=== PATIENT | female | born 1970 | race Caucasian/White ===

== ENCOUNTER 2017-07-24 22:48 | Inpatient (IN) | payer MEDICAID ==
[~2017-07-24] VITALS: Ht 170.2 cm; Wt 114.3 kg
[~2017-07-24 22:48] MED LIST: ACET1TAB93 PO; TRAZ-289 PO
[2017-07-24 22:56] VITALS: BP 141/75
--- NOTE | 2017-07-24 23:05 | NUR ---
PT TAKEN TO BED 12
--- NOTE | 2017-07-24 23:10 | NUR ---
47YO F PATIENT PRESENTS TO ED WITH RIGHT LOWER ABD PAIN X 3 HRS. HX.HYDRONEPHROSIS, S/P NEPHROSTOMY DISLODGED IN 05/2017, HX. DVT ON BLOOD THINNER, HTN . DENIES N/V/D; SKIN BILAT LEG PITTING EDEMA; AAOX4 WITH EVEN AND STEADY GAIT; LUNGS CLEAR BL; HR EVEN AND REGULAR; PT DENIES ANY FEVER, CP, SOB, OR COUGH AT THIS TIME; PATIENT STATES PAIN OF 9/10 AT THIS TIME; VSS; PATIENT POSITIONED FOR COMFORT; HOB ELEVATED; BEDRAILS UP X2; BED DOWN. ER MD MADE AWARE OF PT STATUS.
[2017-07-24] MEDS ORDERED: NACL 0.9% 500 ML IV ONE (23:41)
[2017-07-24] MEDS ORDERED: KETOROLAC 30 MG/ML VIAL IVP ONE (23:45)
[2017-07-25] VITALS (7 sets, daily range): BP systolic 97–119; BP diastolic 40–74
[2017-07-25 00:10] LABS: HEMATOCRIT 44.1 % (36-48); HEMOGLOBIN 14.7 g/dL (12.0-16.0); MEAN CORPUSCULAR HEMOGLOBIN 32 pg (27-31); MEAN CORPUSCULAR HGB CONC 33 g/dL (33-37); MEAN CORPUSCULAR VOLUME 94.9 fL (80-94); PLATELET COUNT (AUTO) 242 K/uL (140-450); RED BLOOD CELL COUNT(AUTO) 4.64 MIL/uL (4.20-5.40); RED CELL DISTRIBUTION WIDTH 13.1 % (11.6-13.7)
[2017-07-25 00:11] LABS: APPEARANCE,URINE CLOUDY (CLEAR); BILIRUBIN,URINE 1+ (NEGATIVE); BLOOD, URINE 2+ (NEGATIVE); COLOR,URINE YELLOW (YELLOW); LEUKOCYTE ESTERASE ,URINE 1+ (NEGATIVE); NITRITE, URINE NEGATIVE (NEGATIVE); PH,URINE 5.5 (5.0-9.0); UGLUCOSE NEGATIVE (NEGATIVE)
--- NOTE | 2017-07-25 00:14 | NUR ---
PT TAKEN TO CT
[2017-07-25 00:23] LABS: LYMPHOCYTES % (MANUAL) 5 % (20-46); WHITE BLOOD COUNT (AUTO) 17.1 K/uL (4.8-10.8)
[2017-07-25 00:24] LABS: EOSINOPHILS % (MANUAL) 3 % (0-4); MONOCYTES % (MANUAL) 3 % (5-12)
--- NOTE | 2017-07-25 00:27 | NUR ---
PT RETURN FROM CT
[2017-07-25 00:29] LABS: PROTHROMBIN TIME 10.9 secs (10.8-13.4)
[2017-07-25 00:38] LABS: RBC,URINE 3-10 (FEW) /HPF (0-5)
[2017-07-25 00:39] LABS: URINE AMORPHOUS URATE 4+ /HPF (None Seen)
[2017-07-25 00:40] LABS: CARBON DIOXIDE 24.7 mmol/L (21-32); POTASSIUM 3.7 mmol/L (3.5-5.1)
[2017-07-25 00:52] LABS: ALBUMIN 3.5 g/dL (3.4-5.0); TOTAL BILIRUBIN 0.6 mg/dL (0.0-1.0)
[2017-07-25] MEDS ORDERED: fentaNYL 0.05 MG/ML VIAL IVP ONE (01:10)
[2017-07-25] MEDS ORDERED: LEVOFLOXACIN 500 MG/D5W PREMIX 100 ML IV ONE (01:10)
[2017-07-25] MEDS ORDERED: HYDROcodone/APAP 7.5/325 MG 1 TAB PO PRN (01:20)
[2017-07-25] MEDS ORDERED: ONDANSETRON 4 MG/2 ML VIAL IVP PRN (01:20)
[2017-07-25] MEDS ORDERED: NACL 0.9% 1,000 ML IV ONE (01:20)
[2017-07-25] MEDS ORDERED: NACL 0.9% 3,500 ML IV ONE (01:55)
[2017-07-25 01:57] LABS: CHOL/HDL RATIO 3.6 (1-4.5); FREE T4 (FREE THYROXINE) 0.98 ng/dL (0.76-1.46); MAGNESIUM 1.5 mg/dL (1.8-2.4); PHOSPHORUS 3.2 mg/dL (2.5-4.9); THYROID STIMULATING HORMONE 1.95 uIU/mL (0.34-3.74)
--- NOTE | 2017-07-25 02:11 | NUR ---
ADMITTED A 47F FROM ER. CAME BY RAFA DUE TO RT ABDOMINAL PAIN THAT RADIATES TO THE RT UPPER LEG WITH DX; PYELONEPHRITIS, RENAL STONE. PT USED TO HAVE RT NEPHROSTOMY TUBE BUT FELL OUT MAY 2017. SHE STILL HAS X2 HOLES ON THE RT LOWER BACK WHICH IS ALREADY HEALED. ON TELE MONITOR-ST. AMBULATORY .SKIN INTACT. IVF INFUSING WELL ON THE LT HAND #20,CLEAR AND PATENT. PLAN OF CARE DISCUSSED AND VERBALIZED UNDERSTANDING. ORIENTED TO HOSPITAL ROUTINES. BD ON LOWEST POSITION. CALL LIGHT PLACED WITHIN EASY REACH. PT SAID SHE HAD HX:MRSA WOUND AND BLOOD. TO BE TRANSFERRED TO AN ISOLATION ROOM.WILL CONTINUE TO MONITOR.
--- NOTE | 2017-07-25 02:12 | NUR ---
Patient will be admitted to care of DR WEBER. Admited to TELE. Will go to room 124A. Belongings list completed. Report to LYDIA DOMÍNGUEZ.
[2017-07-25] MEDS: NACL 0.9% 1,000 ML IV SCH ×5 (03:05→22:48)
--- NOTE | 2017-07-25 03:15 | NUR ---
TRANSFERRED TO ISOLATION ROOM 116 DUE TO HX: MRSA BLOOD AND WOUND .
[2017-07-25 04:17] LABS: BARBITURATE, URINE NEG. ng/ml (NEG <=200); BENZODIAZEPINE, URINE NEG. ng/mL (NEG <=200); CANNABINOID, URINE NEG. ng/mL (NEG <=50); COCAINE, URINE NEG. ng/mL (NEG <=300); OPIATE, URINE NEG. ng/mL (NEG <=2000); PHENCYCLIDINE SCREEN,URINE NEG. ng/mL (NEG <=25)
[2017-07-25] MEDS ORDERED: MORPHINE SULFATE 4 MG/ML SYR ONE ×2 (04:29→13:40)
[2017-07-25] MEDS: MORPHINE SULFATE 4 MG/ML SYR IVP PRN ×2 (04:32→23:28)
[2017-07-25] MEDS ORDERED: KETOROLAC 30 MG/ML VIAL IVP PRN (04:35)
--- NOTE | 2017-07-25 05:02 | NUR ---
MADE ROUNDS . PA ASLEEP. NO S/S OF ANY DISCOMFORT NOR PAIN NOTED.
--- NOTE | 2017-07-25 05:40 | NUR ---
MAGNESIUM LEVEL 1.5 MADE AWARE.
[2017-07-25] MEDS ORDERED: MAG SULF 2000 MG/WATER PREMIX 50 ML IV SCH (06:00)
--- NOTE | 2017-07-25 07:10 | NUR ---
ENDORSED PT IN STABLE CONDITION TO AM NURSE.
--- NOTE | 2017-07-25 07:10 | NUR ---
ASSUMED CONTINUITY OF CARE. NO SIGNS AND SYMPTOMS OF ACUTE DISTRESS NOTICED. INITIAL ASSESSMENT DONE. KEEP COMFORTABLE ON BED. EXPLAINED DIAGNOSIS, PLAN OF CARE, PAIN MANAGEMENT TEACHING, CONTACT ISOLATION PRECAUTION EDUCATION, USE OF CALL LIGHT/BED/TV/BATHROOM. VERBALIZED UNDERSTANDING. CALL LIGHT WITHIN REACH.
--- NOTE | 2017-07-25 07:46 | NUR ---
DR. BARRON WENT INSIDE PT. ROOM AND SPOKE TO PT. AT BEDSIDE.
--- NOTE | 2017-07-25 08:00 | NUR ---
Patient's Plan of Care was discussed and reviewed with FLOW TRADER: KULWANT SHETH LVN
[2017-07-25] MEDS: DICLOFENAC 75 MG TABEC PO SCH ×2 (08:54→21:02)
[2017-07-25] MEDS: DOCUSATE SODIUM 100 MG GELCAP PO SCH ×2 (08:54→21:00)
[2017-07-25] MEDS: APIXABAN 2.5 MG TAB PO SCH ×2 (09:04→21:06)
--- NOTE | 2017-07-25 09:07 | NUR ---
PATIENT HAS BEEN SCREENED AND CATEGORIZED HIGH NUTRITION RISK. PATIENT WILL BE SEEN WITHIN 1-2 DAYS OF ADMISSION. 07/25/17 - 07/26/[address]
[2017-07-25] MEDS ORDERED: SEVOFLURANE 250 ML BTL INH ONE (13:15)
[2017-07-25] MEDS ORDERED: PROPOFOL 200 MG/20 ML VIAL IV ONE (13:15)
--- NOTE | 2017-07-25 13:25 | NUR ---
WENT TO O.R. VIA RAFA WITH O.R. NURSE. IN STABLE CONDITION.
[2017-07-25] MEDS ORDERED: fentaNYL 0.05 MG/ML VIAL ONE (13:39)
[2017-07-25] MEDS ORDERED: MIDAZOLAM 2 MG/2 ML VIAL ONE (13:39)
--- NOTE | 2017-07-25 13:48 | NUR ---
CM NOTE INITIAL REVIEW FAXED TO [facility] [phone] PH# [phone] AND TO [facility] [phone] NGOC PH# [phone]
[2017-07-25] MEDS ORDERED: METOCLOPRAMIDE 10 MG/2 ML INJ VIAL IVP PRN (14:10)
[2017-07-25] MEDS ORDERED: MORPHINE SULFATE 4 MG/ML SYR IVP PRN ×3 (14:10)
[2017-07-25] MEDS ORDERED: MORPHINE SULFATE 2 MG/ML SYR IVP PRN (14:10)
[2017-07-25] MEDS ORDERED: MIDAZOLAM 2 MG/2 ML VIAL IV ONE (14:10)
--- NOTE | 2017-07-25 14:53 | NUR ---
07/25/17 RD INITIAL ASSESSMENT COMPLETED PLEASE REFER TO NUTRITION ASSESSMENT UNDER CARE ACTIVITY FOR ESTIMATED NUTRITIONAL NEEDS. 1. CONTINUE NPO STATUS TOLERATED 2. WHEN/IF PT IS MEDICALLY STABLE TO BEGIN NUTRITION, CONSIDER ADVANCE DIET TOLERATED TO [address] TO FOLLOW-UP 2-3 DAYS, HIGH RISK ZAYNAB SALCEDO RD
--- NOTE | 2017-07-25 15:00 | NUR ---
BACK FROM OR VIA GURNEY. IN STABLE CONDITION. KEEP COMFORTABLE ON BED.
--- NOTE | 2017-07-25 17:30 | NUR ---
PT. IV ACCESS ON LEFT HAND GOT INFILTRATED. TRIED IV INSERTION WITH ASSISTANCE FROM CHARGE NURSE JAELYN COLMENARES. IV INSERTION WAS UNSUCCESSFUL. PT. REFUSED ANY ATTEMPT OF IV INSERTION NOW.
--- NOTE | 2017-07-25 19:20 | NUR ---
REPORT GIVEN TO JENS COLMENARES. IN STABLE CONDITION. IV ACCESS ON LEFT HAND INFILTRATED AND PT. WANTED OTHER RN TO START IV. ENDORSED JENS COLMENARES. ABOUT PT. IV INFILTRATION AND TO START NEW IV ACCESS.
--- NOTE | 2017-07-25 19:52 | NUR ---
RECEIVED FROM AM RN IN BED. AMBULATING WELL AND ABLE TO VERBALIZE NEEDS WELL. DAUGHTER AT BEDSIDE. SEEN PT. AMBULATING BY HERSELF FROM RESTROOM INSIDE ROOM. INDEPENDENT. TELEMETRY MONITORING. CARE PLANS FOR THE NIGHT DISCUSSED WITH HER. CALL LIGHT WITH IN REACH.
[2017-07-25] MEDS: FAMOTIDINE 20 MG TAB PO SCH (21:00)
[2017-07-25] MEDS: BACLOFEN 10 MG TAB PO SCH (21:00)
[2017-07-25] MEDS: traZODone 50 MG TAB PO SCH (21:00)
--- NOTE | 2017-07-25 23:00 | NUR ---
DAUGHTER LEFT AND PT. STILL AWAKE WATCHING TV. NO COMPLAINTS OF PAIN AT THIS TIME. TELEMETRY MONITORING. ENCOURAGED TO CALL FOR A [place] HELP SHE MAY NEED OR IF IN PAIN.
[2017-07-26] MEDS: NACL 0.9% 1,000 ML IV SCH ×3 (02:56→18:50)
[2017-07-26 04:00] VITALS: BP 112/68
--- NOTE | 2017-07-26 04:00 | NUR ---
CHECKED ON PT. SLEEPING.
--- NOTE | 2017-07-26 06:46 | NUR ---
SLEPT WELL THIS SHIFT. INDEPENDENT AND GOES BRP BY HERSELF. TELEMETRY MONITORING. MEDICATED WITH PAIN RELIEVER X 1 ONLY THIS SHIFT.
--- NOTE | 2017-07-26 07:05 | NUR ---
ASSUMED CONTINUITY OF CARE. NO SIGNS AND SYMPTOMS OF ACUTE DISTRESS NOTED. INITIAL ASSESSMENT DONE. PT. VERBALLY ABUSIVE. KEEP COMFORTABLE ON BED. EXPLAINED DIAGNOSIS, PLAN OF CARE, PAIN MANAGEMENT TEACHING, CONTACT ISOLATION PRECAUTION, USE OF CALL LIGHT/BED/TV/BATHROOM. VERBALIZED UNDERSTANDING. CALL LIGHT WITHIN REACH.
[2017-07-26 08:00] VITALS: BP 143/95
--- NOTE | 2017-07-26 08:00 | NUR ---
Patient's Plan of Care was discussed and reviewed with [employer]GR[employer] M[employer] OPERATOR: KULWANT SHETH LVN
--- NOTE | 2017-07-26 08:15 | NUR ---
PT. DAUGHTER -SUSAN CAME AND BROUGHT 2 1 LITER PACK OF JUICE. EXPLAINED TO PT. AND PT. DAUGHTER -SUSAN THAT TOO MUCH JUICE WAS NOT GOOD FOR PT.. ASKED PT. AND PT. DAUGHTER JUST TO CALL FOR ASSISTANCE IF NEEDS SOME JUICE OR WATER. PT. NON-COMPLIANT AND VERBALLY ABUSIVE AND STATES "I CAN DRINK WHATEVER I WANT AND HOW MUCH I WANT." IN AN ANGRY TONE OF VOICE. INFORMED CHARGE NURSE SANDIE COLMENARES.
[2017-07-26] MEDS: DOCUSATE SODIUM 100 MG GELCAP PO SCH ×2 (09:08→20:35)
[2017-07-26] MEDS: DICLOFENAC 75 MG TABEC PO SCH ×2 (09:09→20:37)
[2017-07-26] MEDS: APIXABAN 2.5 MG TAB PO SCH ×2 (09:10→20:39)
--- NOTE | 2017-07-26 10:26 | NUR ---
CM NOTE CONCURRENT REVIEW FAXED TO [facility] [phone] PH# [phone] AND TO [facility] [phone] NGOC PH# [phone]
--- NOTE | 2017-07-26 10:50 | NUR ---
DR. COOLEY WENT INSIDE PT. ROOM AND TRIED TO SPOKE TO PT.. BUT SOON DR. COOLEY ATARTED TO TALK, PT. ALREADY VERBALLY ABUSED DR. COOLEY. TRIED TO CALM DOWN PT. BUT PT. NON-COMPLIANT. INFORMED CHARGE NURSE SANDIE COLMENARES.
--- NOTE | 2017-07-26 11:35 | NUR ---
DR. FERGUSON WENT INSIDE PT. ROOM AGAIN AND SPOKE TO PT. AND PT. DAUGHTER- SUSAN ABOUT 2 LITERS OF JUICE THAT PT. DAUGHTER BROUGHT. PT. STILL SO DISRESPECTFUL TO DR. COOLEY. PT. DAUGHTER VERBALIZED UNDERSTANDING AND TOOK AWAY 2 LITERS OF JUICE.
[2017-07-26 12:00] VITALS: BP 156/86
[2017-07-26] MEDS ORDERED: MORPHINE SULFATE 4 MG/ML SYR IVP SCH (12:00)
--- NOTE | 2017-07-26 12:43 | NUR ---
TEMP 102.4. NO ACUTE DISTRESS NOTICED. NON-COMPLIANT. REFUSED COOLING MEASURE APPLICATION. WILL MEDICATE PER MD ORDER. INFORMED DR. BARRON ABOUT PT. TEMP 102.4, WHO WAS AT THE [facility] NURSE STATION AT THIS TIME. ALSO INFORMED DR. COOLEY ABOUT PT. FEVER 102.4.
[2017-07-26] MEDS: ACETAMINOPHEN 325 MG TAB PO PRN ×2 (12:45→22:16)
--- NOTE | 2017-07-26 14:15 | NUR ---
TEMP 98.7 TEMPORAL THERMOMETER. NO C/O PAIN. KEEP COMFORTABLE ON BED. CONTINUE TO MONITOR.
--- NOTE | 2017-07-26 14:18 | NUR ---
INFORMED DR. COOLEY ABOUT PT. LATEST TEMP OF 98.7.
[2017-07-26] MEDS ORDERED: LEVOFLOXACIN 750 MG/D5W PREMIX 150 ML IV SCH (15:00)
[2017-07-26 15:12] LABS: BASOPHILS # (AUTO) 0.1 K/uL (0.00-0.22); BASOPHILS % (AUTO) 0.4 % (0.0-2.0); EOSINOPHILS # (AUTO) 0.2 K/uL (0-0.4); EOSINOPHILS % (AUTO) 0.9 % (0.0-4.0); HEMATOCRIT 38.8 % (36-48); HEMOGLOBIN 12.8 g/dL (12.0-16.0); MEAN CORPUSCULAR HEMOGLOBIN 32 pg (27-31); MEAN CORPUSCULAR HGB CONC 33 g/dL (33-37); MEAN CORPUSCULAR VOLUME 95.2 fL (80-94); MONOCYTES # (AUTO) 0.9 K/uL (0.8-1.0); MONOCYTES % (AUTO) 5.6 % (1.7-9.3); NEUTROPHILS # (AUTO) 14.4 K/uL (1.8-7.7); NEUTROPHILS % (AUTO) 87.1 % (42.2-75.2); PLATELET COUNT (AUTO) 161 K/uL (140-450); RED BLOOD CELL COUNT(AUTO) 4.08 MIL/uL (4.20-5.40); RED CELL DISTRIBUTION WIDTH 13.3 % (11.6-13.7); WHITE BLOOD COUNT (AUTO) 16.5 K/uL (4.8-10.8)
[2017-07-26 15:20] LABS: ANION GAP 10.5 (8-16); CARBON DIOXIDE 24.1 mmol/L (21-32); POTASSIUM 3.6 mmol/L (3.5-5.1)
[2017-07-26 15:23] LABS: MAGNESIUM 1.5 mg/dL (1.8-2.4); PHOSPHORUS 1.9 mg/dL (2.5-4.9)
[2017-07-26 16:00] VITALS: BP 128/84
--- NOTE | 2017-07-26 16:47 | NUR ---
INFORMED DR. COOLEY ABOUT PT. MAG 1.5. ALSO INFORMED CHARGE NURSE SANDIE COLMENARES.
--- NOTE | 2017-07-26 17:43 | NUR ---
INFORMED DR. COOLEY AGAIN ABOUT PT. MAG 1.5.
[2017-07-26] MEDS: MAG SULF 2000 MG/WATER PREMIX 50 ML IV SCH ×2 (18:12→22:06)
--- NOTE | 2017-07-26 19:19 | NUR ---
REPORT GIVEN TO JENS COLMENARES. IVF INFUSING WELL. IN STABLE CONDITION.
--- NOTE | 2017-07-26 19:20 | NUR ---
RECEIVED FROM AM NURSE IN BED SLEEPING AND DAUGHTER AT BEDSIDE. NO COMPLAINTS DONE AT THIS TIME. PT. ABLE TO USE CALL LIGHT FOR HELP AND INDEPENDENT.
[2017-07-26 20:30] VITALS: BP 147/91
[2017-07-26] MEDS: traZODone 50 MG TAB PO SCH (20:36)
[2017-07-26] MEDS: FAMOTIDINE 20 MG TAB PO SCH (20:36)
[2017-07-26] MEDS: BACLOFEN 10 MG TAB PO SCH (20:36)
--- NOTE | 2017-07-26 21:22 | NUR ---
PT. SHOUTING AT THE TOP OF HER VOICE DEMANDING THAT SHE URINATED IN HER BED. EXPLAINED THAT SHE REQUESTED EARLIER FOR BEDSIDE COMMODE AND PROVIDED HER WITH ONE . PT. ABLE TO WALK TO RESTROOM BY HERSELF LAST NIGHT. PT. BEEN VERBALLY ABUSIVE. PACIFIED HER AND WENT BACK TO BED. CALLED CNAS TO CHANGE HER BEDDINGS . ROM X 4. CLEAR SPEECH. COLD COMPRESS TO HEAD IN PLACE RT WITH TEMPERATURE OF 101 AT THIS TIME. WILL INFORM MD RESIDENT.
--- NOTE | 2017-07-26 22:18 | NUR ---
MEDICATED WITH TYLENOL RT WITH TEMPERATURE OF 101 . MD RESIDENT AWARE. CONTINUOS COLD COMPRESS .
--- NOTE | 2017-07-26 22:19 | NUR ---
PT. ASKED ABOUT WHY HER BED WAS WET . PT. DID NOT URINATE IN BED RT ABLE TO STAND UP AND USE BEDSIDE COMMODE PROVIDED EARLIER. PT. WET HER BEDDINGS RT SWEATING A LOT.
--- NOTE | 2017-07-26 23:28 | NUR ---
PT. SLEEPING WELL. VITAL SIGNS TAKEN AND PT. WOKE UP EASILY. NO FURTHER COMPLAINTS DONE. TELEMETRY MONITORING.
[2017-07-26 23:32] VITALS: BP 128/65
--- NOTE | 2017-07-26 23:34 | NUR ---
PT. TEMPERATURE AT 98.7 PER TEMPORAL SCAN . NO RESTLESSNESS NOTED AT THIS TIME. CALL LIGHT WITH IN REACH.
[2017-07-27] MEDS: NACL 0.9% 1,000 ML IV SCH ×2 (01:45→11:29)
--- NOTE | 2017-07-27 01:56 | NUR ---
SLEEPING. CHANGED BLANKETS RT PT. WET WITH PERSPIRATION. WOKE UP EASILY WHEN TOUCHED. TELEMETRY MONITORING. NO RESTLESSNESS AT THIS TIME.
--- NOTE | 2017-07-27 03:00 | NUR ---
SLEEPING. WAKES UP EASILY WHEN TOUCHED. CALL LIGHT WITH IN REACH. NO RESTLESSNESS. GAVE NEW BLANKETS AT THIS TIME RT WET WITH PERSPIRATION.
[2017-07-27 04:56] VITALS: BP_SYST 100; BP_SYST 130; BP_DIAS 70; BP_DIAS 72
--- NOTE | 2017-07-27 05:30 | NUR ---
AM PERSONAL HYGIENE RENDERED BY CNAS. NO COMPLAINTS DONE. TELEMETRY MONITORING. GOES BRP BY HERSELF . STANDS UP STRAIGHT. ROM X 4. CLEAR SPEECH. AFEBRILE AT THIS TIME. PT. BEEN SLEEPING GOOD THIS SHIFT.
[2017-07-27 06:36] LABS: EOSINOPHILS # (AUTO) 0.2 K/uL (0-0.4); EOSINOPHILS % (AUTO) 2.3 % (0.0-4.0); HEMATOCRIT 38.7 % (36-48); HEMOGLOBIN 13.1 g/dL (12.0-16.0); LYMPHOCYTES # (AUTO) 0.3 K/uL (2.5-16.5); LYMPHOCYTES % (AUTO) 2.8 % (20.5-51.1); MEAN CORPUSCULAR HEMOGLOBIN 32 pg (27-31); MEAN CORPUSCULAR HGB CONC 34 g/dL (33-37); MEAN CORPUSCULAR VOLUME 95.6 fL (80-94); MONOCYTES # (AUTO) 2.5 K/uL (0.8-1.0); MONOCYTES % (AUTO) 23.2 % (1.7-9.3); NEUTROPHILS # (AUTO) 7.8 K/uL (1.8-7.7); NEUTROPHILS % (AUTO) 71.7 % (42.2-75.2); PLATELET COUNT (AUTO) 151 K/uL (140-450); RED BLOOD CELL COUNT(AUTO) 4.05 MIL/uL (4.20-5.40); RED CELL DISTRIBUTION WIDTH 13.3 % (11.6-13.7); WHITE BLOOD COUNT (AUTO) 10.9 K/uL (4.8-10.8)
[2017-07-27 06:43] LABS: ANION GAP 9.3 (8-16); CARBON DIOXIDE 27.2 mmol/L (21-32); CREATININE 0.8 mg/dL (0.6-1.3); POTASSIUM 4.5 mmol/L (3.5-5.1)
[2017-07-27 07:12] LABS: MAGNESIUM 2.4 mg/dL (1.8-2.4); PHOSPHORUS 2.9 mg/dL (2.5-4.9)
--- NOTE | 2017-07-27 07:25 | NUR ---
RECEIVED REPORT FROM NIGHTSHIFT NURSE. PATIENT AROUSABLE TO NAME BUT IS STILL SLEEPY. PATIENT RESPIRATIONS WITHIN NORMAL LIMITS. BEDSIDE COMMODE AT PATIENT'S BEDSIDE. PATIENT DOES NOT COMPLAIN OF PAIN AT THIS TIME. PATIENT IV IS NOTED ON THE LEFT FOREARM 22G RUNNING 126 ML/HR. UPDATED BOARD IN PATIENT'S ROOM. LOWERED BED TO LOWEST SETTING. CALL LIGHT WITHIN REACH OF PATIENT. WILL CONTINUE TO MONITOR PATIENT.
[2017-07-27 08:00] VITALS: BP 155/61
[2017-07-27] MEDS ORDERED: LACTOBACILLUS RHAMNOSUS GG 1 EACH CAP PO SCH (09:00)
--- NOTE | 2017-07-27 09:00 | NUR ---
PATIENT ALERT AND ORIENTED X4. PATIENT ABLE TO AMBULATE TO RESTROOM. PATIENT TOLERATED WELL. WILL CONTINUE TO MONITOR PATIENT.
[2017-07-27] MEDS: DOCUSATE SODIUM 100 MG GELCAP PO SCH (09:44)
[2017-07-27] MEDS: DICLOFENAC 75 MG TABEC PO SCH (09:45)
[2017-07-27] MEDS: APIXABAN 2.5 MG TAB PO SCH (09:49)
--- NOTE | 2017-07-27 09:56 | NUR ---
CM NOTE CONCURRENT REVIEW FAXED TO [facility] [phone] PH# [phone] AND TO [facility] [phone] NGOC PH# [phone]
--- NOTE | 2017-07-27 11:37 | NUR ---
PATIENT AWAKE AT THIS TIME. NO SIGNS OF RESPIRATORY DISTRESS. PATIENT DOES NOT PRESENT WITH A FEVER AT 98.5 WILL CONTINUE TO MONITOR PATIENT.
[2017-07-27 12:00] VITALS: BP 115/86
--- NOTE | 2017-07-27 12:40 | NUR ---
PATIENT WANTS TO SIGNED AGAINST MEDICAL ADVICE PAPER. DR. COOLEY EXPLAINED RISKS OF GOING AGAINST MEDICAL ADVICE A OF A DOCTOR. PATIENT VERBALIZED UNDERSTANDING. PATIENT SIGNED PAPER. PATIENT AWARE OF PRESCRIPTION THAT GAVE HIM. REMOVED PATIENT'S INTRAVENOUS LINE WITH CATHETER IN TACT. REMOVED PATIENTS TELE MONITOR. REMOVED PATIENT'S IDENTIFICATION BAND. PATIENT LEFT IN STABLE CONDITION WITH ALL BELONGINGS WITH FAMILY MEMBERS.
--- NOTE | 2017-07-27 14:24 | NUR ---
07/27/17 RD FOLLOW UP COMPLETED PLEASE REFER TO NUTRITION ASSESSMENT UNDER CARE ACTIVITY FOR ESTIMATED NUTRITIONAL NEEDS. 1. CONTINUE REGULAR DIET TOLERATED 2. RD TO FOLLOW-UP 3-5 DAYS, MODERATE RISK ZAYNAB SALCEDO RD
== END 2017-07-27 12:40 | disposition left against medical advice (07) | DRG 720 ==
LOC: MED 22:48 → MTU 07-25 01:19
PROVIDERS: ADMIT Family Medicine Sports Medicine; ATTEND Family Medicine Sports Medicine
PROC: BT1D1ZZ Fluoroscopy of Right Kidney, Ureter and Bladder using Low Osmolar Contrast (ICD-10-PCS; 2017-07-25)
PROC: 0T768DZ Dilation of Right Ureter with Intraluminal Device, Via Natural or Artificial Opening Endoscopic (ICD-10-PCS; principal; 2017-07-25 13:30)
DX: A41.9 Sepsis, unspecified organism (principal); E83.42 Hypomagnesemia; I10 Essential (primary) hypertension; N13.0 Hydronephrosis with ureteropelvic junction obstruction; N20.2 Calculus of kidney with calculus of ureter; N12 Tubulo-interstitial nephritis, not specified as acute or chronic; R65.20 Severe sepsis without septic shock; K21.9 Gastro-esophageal reflux disease without esophagitis; J45.909 Unspecified asthma, uncomplicated; G47.00 Insomnia, unspecified; G89.29 Other chronic pain; F17.210 Nicotine dependence, cigarettes, uncomplicated; E11.9 Type 2 diabetes mellitus without complications; E66.9 Obesity, unspecified; Z53.21 Procedure and treatment not carried out due to patient leaving prior to being seen by health care provider; Z86.14 Personal history of Methicillin resistant Staphylococcus aureus infection; Z83.3 Family history of diabetes mellitus; Z83.6 Family history of other diseases of the respiratory system; Z68.39 Body mass index [BMI] 39.0-39.9, adult; Z79.01 Long term (current) use of anticoagulants; Z86.711 Personal history of pulmonary embolism; Z86.718 Personal history of other venous thrombosis and embolism; Z93.6 Other artificial openings of urinary tract status; Z98.891 History of uterine scar from previous surgery; N39.0 Urinary tract infection, site not specified
CPT/HCPCS: 36415; 71045; 80048; 80053; 80305; 81001; 81025; 82150; 83036; 83605; 83690; 83735; 83880; 84100; 84439; 84443; 84484; 85025; 85610; 85730; 87040; 87081; 87086; 87186; 93005; 96365; 96375; 99285; C1758; C1769; C2617; J1885; J1956; J2250; J2270; J2704; J3010; J3475; J7030; Q0092